=== PATIENT | female | born 1945 | race Caucasian/White ===

== ENCOUNTER 2025-06-27 21:43 | Inpatient (IN) ==
--- NOTE | 2025-06-27 22:36 | Emergency Department Note ---
Impression & Plan Fall, Right shoulder pain, Acute pain of left hip, Intractable pain ED Provider Note CHIEF COMPLAINT: Fall HISTORY OF PRESENTING ILLNESS: The patient is a pleasant, 80-year-old female who arrives to the emergency department for evaluation of injuries sustained from a mechanical fall. Patient reports she tripped over her own feet, when she was attempting to turn in the kitchen. Patient does have right shoulder arthroplasty. She reports she landed onto her right shoulder. She states she did not have head strike. She also reports she is having left hip pain. She denies numbness or tingling of the right upper or left lower extremity. She states she is able to ambulate, however painful in the left hip. She reports she takes a daily baby aspirin. She is well-appearing otherwise, neurovascular status intact. REVIEW OF SYSTEMS: See HPI for pertinent positives and pertinent negatives. ALLERGIES: See below MEDICATIONS: See below PAST MEDICAL HISTORY: See below PHYSICAL EXAM: VITALS: Vitals are noted on the nurse's note and reviewed by myself. Vital signs stable. GENERAL: 80-year-old female, in no acute distress, nondiaphoretic, well- developed well-nourished. SKIN: The skin was without rashes, erythema, edema, or bruising. HEAD: Normocephalic atraumatic. EARS: External auditory canals clear, tympanic membranes pearly scott without erythema or effusion bilaterally. No hemotympanum. EYES: Pupils equal round and reactive to light and accommodation. Conjunctivae without injection, sclerae without icterus. Extraocular movements intact. NOSE: Patent, turbinates without inflammation or discharge. No sinus tenderness. No nystagmus. NECK: Supple without nuchal rigidity. Cervical spine is nontender. HEART: Regular rate and rhythm without murmurs gallops or rubs. LUNGS: Clear to auscultation bilaterally without wheezes, rales or rhonchi. No retractions or accessory muscle use. ABDOMEN: Positive bowel sounds x 4. Soft, nontender, without masses or organomegaly. Dow sign negative. No guarding or rebound tenderness. MUSCULOSKELETAL: Tenderness to palpation left hip over the greater trochanter. Pelvis stable to rock. Tenderness to palpation anterior posterior shoulder, limited ROM shoulder, secondary to pain. Full ROM, right elbow, right wrist. Filter Tip Catcher strength 5/5. Radial pulse intact. NEURO: Patient was alert and oriented to person place and time. No focal neurological deficits. DIFFERENTIAL DIAGNOSIS: Fracture, subluxation, dislocation, contusion, ligamentous injury, neurovascular, compartment syndrome, as well as other pathologies. ED COURSE AND MEDICAL DECISION MAKING: MEDICATIONS GIVEN: Fentanyl 50 mcg IV, Dilaudid 0.5 mg IV. INTERPRETATION OF LABS: I interpreted the labs with full lab results as below in the lab section of this note. Pertinent lab results discussed in the MDM section below. INTERPRETATION OF IMAGING: Imaging studies were interpreted by myself and read by radiology as per the imaging section of this note. MDM SUMMARY: The patient is a pleasant, 80-year-old female who arrives to the emergency department for evaluation of the above-stated complaint. Saline lock was established, lab work was obtained. CBC shows no leukocytosis, no anemia. CMP shows slight elevation in creatinine, however otherwise unremarkable. Urinalysis negative for concerning signs of infection. X-ray imaging of the shoulder was obtained which per my interpretation shows no acute findings, arthroplasty appears to have no evidence of hardware complication or fracture. There is noted dislocation noted. Hip and pelvis x-ray imaging was obtained which per my interpretation shows no acute bony abnormality. Patient was provided IV fentanyl, and IV Dilaudid for pain control, with continued significant pain. I do believe CT imaging of the shoulder is indicated, as the patient's pain is out of proportion for the radiology reads. CT imaging was performed, with no acute traumatic injury noted. Patient will be admitted to the hospital for intractable pain, and further evaluation. The patient was admitted to the [facility] hospitalist group. Please refer to their documentation for further patient workup and care. DIAGNOSIS: Fall, right shoulder pain, left hip pain, intractable pain The patient's case was discussed with Dr. Sousa, who agreed with my evaluation and treatment plan. The chart was completed utilizing [employer] Speech voice recognition software. Grammatical errors, random word insertions, pronoun errors, and incomplete sentences are an occasional consequence of this system due to software limitations, ambient noise, and hardware issues. Any formal questions or concerns about the content, text, or information contained within the body of this dictation should be directly addressed to the provider for clarification. Past Med/Surg History Problem List (Updated 07/03/25 @ 19:03 by RIKKI Drummond) Intractable pain (Acute) Acute pain of left hip (Acute) History of shoulder replacement Renal insufficiency Fall (Acute) Right shoulder pain (Acute) Impacted cerumen, left ear Dizziness and giddiness Sensorineural hearing loss (SNHL), bilateral Medical History Trigeminal neuralgia Acid reflux Diabetes High blood pressure Surgical History H/O carpal tunnel repair History of bladder surgery H/O: hysterectomy Family History Other Cancer Heart disease Hypertension Stroke Social History Smoking Status: Former smoker Tobacco Type: Cigarettes Second Hand Exposure: No; Do You Dip or Chew Tobacco: No; Hx Alcohol Use: No Hx Substance Use: No Preferred Language: Polish Communication Ability: Effective Core Oven Tender Required: No Beliefs That Will Affect Care: None marital status: Current Living Situation: Alone current occupational status: retired Feels Safe at Home: Yes Gender Identity: Female Assistive Devices: CPAP and Walker Allergies Allergies Allergy/AdvReac Type Severity Reaction Status Date / Time cephalexin [From Keflex] Allergy Unverified 05/30/25 10:23 morphine Allergy Unverified 05/30/25 10:23 Sulfa (Sulfonamide Allergy Unverified 05/30/25 10:23 Antibiotics) Home Meds Home Medications Medication Instructions Recorded Confirmed amlodipine 5 mg tablet 5 mg PO DAILY 05/30/25 06/28/25 [id number] 250 1 tab PO Q6H PRN Migraine Headache 05/30/25 06/28/25 mg-250 mg-65 mg tablet (Excedrin Extra Strength) atorvastatin 10 mg tablet 10 mg PO DAILY 05/30/25 06/28/25 cholecalciferol (vitamin D3) 125 125 mcg PO DAILY 05/30/25 06/28/25 mcg (5,000 unit) capsule cyanocobalamin (vitamin B-12) 500 500 mcg PO DAILY 05/30/25 06/28/25 mcg tablet escitalopram oxalate 10 mg tablet 10 mg PO DAILY 05/30/25 06/28/25 ferrous sulfate 325 mg (65 mg 325 mg PO USEASDIRECTD 05/30/25 06/28/25 iron) tablet gabapentin 600 mg tablet 600 mg PO BID 05/30/25 06/28/25 ketorolac 0.5 % eye drops 1 drp ophthalmic (eye) QID 05/30/25 06/28/25 lorazepam 0.5 mg tablet 0.5 mg PO HS 05/30/25 06/28/25 oxcarbazepine 150 mg tablet 150 mg PO BID 05/30/25 06/28/25 pantoprazole 40 mg tablet,delayed 40 mg PO DAILY 05/30/25 06/28/25 release pioglitazone 15 mg tablet 15 mg PO DAILY 05/30/25 06/28/25 rizatriptan 10 mg tablet See Rx Instructions PO .COMPLEX 05/30/25 06/28/25 telmisartan 80 mg tablet 80 mg PO DAILY 05/30/25 06/28/25 trazodone 100 mg tablet 150 mg PO HS 05/30/25 06/28/25 verapamil 180 mg 24 hr 180 mg PO BID 05/30/25 06/28/25 capsule,extended release Previous Rx's Medication Instructions Recorded acetaminophen 500 mg tablet 1,000 mg (2 x 500 mg) PO Q8H #0 07/02/25 (Tylenol Extra Strength) tabs oxycodone 5 mg tablet 5 mg PO Q4H PRN pain #12 tabs 07/02/25 Results & Data (ED) Vital Signs Vital Signs - 24 hr 06/27/25 21:45 Temperature 36.5 C Temperature Source Temporal Artery Scan Pulse Rate 99 H Pulse Rhythm Regular Pulse Strength Normal Respiratory Rate 18 Respiratory Effort / Characteristics Non-Labored Spontaneous Respiratory Depth Normal Respiratory Pattern Regular Blood Pressure 188/106 H Blood Pressure Mean 133 Pulse Oximetry 91 Oxygen Delivery Method Room Air Sepsis Recent Fever Within 48 Hours No Sepsis New/Unexplained Change in Mental Status No Sepsis Action Taken by Nursing No Action Required Laboratory Data 06/27/25 22:57 07/02/25 06:10 Lab Results 06/27/25 Range/Units 22:57 WBC 8.56 (4.8-10.8) K/ul RBC 3.95 L (4.20-5.40) M/uL Hgb 12.5 (12.0-16.0) g/dl Hct 37.9 (37.0-47.0) % MCV 95.9 (80.0-100.0) fL MCH 31.6 (25.0-34.0) pg MCHC 33.0 (32.0-36.0) g/dL RDW Std Deviation 52.2 H (36.4-46.3) fL RDW Coeff of Analy 14.8 H (11.5-14.5) % Plt Count 236 (130-400) K/uL MPV 10.7 (9.4-12.4) fL Immature Gran % (Auto) 0.2 % Neut % (Auto) 68.3 % Lymph % (Auto) 21.5 % Churchill % (Auto) 8.4 % Eos % (Auto) 0.7 % Baso % (Auto) 0.9 % Neut # (Auto) 5.84 (1.40-6.50) K/uL Lymph # (Auto) 1.84 (1.20-3.40) K/uL Churchill # (Auto) 0.72 H (0.11-0.59) K/uL Eos # (Auto) 0.06 (0.00-0.50) K/uL Baso # (Auto) 0.08 (0.00-0.20) K/uL Immature Gran # (Auto) 0.02 (0.01-0.20) K/uL Sodium 140 (136-145) mmol/L Potassium 4.1 (3.5-5.1) mmol/L Chloride 105 (98-107) mmol/L Carbon Dioxide 26 (21-32) mmol/L Anion Gap 9 (3-11) BUN 15 (6-23) mg/dl Creatinine 1.42 H (0.6-1.2) mg/dl Est Cr Clr Drug Dosing 29.4 ml/min eGFR 37.62 BUN/Creatinine Ratio 10.6 (10-20) Glucose 122 H (70-99(Fasting)) mg/dl Calcium 9.6 (8.6-10.3) mg/dl Total Bilirubin 0.3 (0.2-1.0) mg/dl AST 16 (13-39) U/L ALT 7 (7-52) U/L Alkaline Phosphatase 89 (34-104) U/L Total Protein 6.7 (6.0-8.3) gm/dl Albumin 3.8 (3.4-5.0) gm/dl Globulin 2.9 (2.5-4.0) gm/dl Albumin/Globulin Ratio 1.3 (0.9-2) Administered Medications Discontinued Medications Acetaminophen (Acetaminophen 500 Mg Tab) 1,000 mg PO Q8H BAL Stop: 07/28/25 08:29 Last Admin: 07/02/25 08:04 Dose: 1,000 mg Documented By: Admin: 07/02/25 01:01 Dose: 1,000 mg Documented By: Admin: 07/01/25 17:59 Dose: 1,000 mg Documented By: Admin: 07/01/25 07:53 Dose: 1,000 mg Documented By: Admin: 07/01/25 00:58 Dose: Not Given Documented By: Admin: 06/30/25 16:49 Dose: 1,000 mg Documented By: Admin: 06/30/25 08:15 Dose: 1,000 mg Documented By: Admin: 06/30/25 01:47 Dose: Not Given Documented By: mauricio Admin: 06/29/25 18:01 Dose: 1,000 mg Documented By: Admin: 06/29/25 08:57 Dose: 1,000 mg Documented By: Admin: 06/29/25 02:00 Dose: Not Given Documented By: mauricio Admin: 06/28/25 16:07 Dose: 1,000 mg Documented By: Admin: 06/28/25 09:21 Dose: Not Given Documented By: MIKAEL Amlodipine Besylate (Amlodipine Besylate 5 Mg Tab) 5 mg PO DAILY BAL Stop: 07/28/25 08:59 Last Admin: 07/02/25 07:52 Dose: 5 mg Documented By: Admin: 07/01/25 07:50 Dose: 5 mg Documented By: Admin: 06/30/25 08:17 Dose: 5 mg Documented By: Admin: 06/29/25 08:55 Dose: 5 mg Documented By: Admin: 06/28/25 08:50 Dose: 5 mg Documented By: MIKAEL Atorvastatin Calcium (Atorvastatin 10 Mg Tab) 10 mg PO DAILY BAL Stop: 07/28/25 08:59 Last Admin: 07/02/25 07:52 Dose: 10 mg Documented By: Admin: 07/01/25 07:50 Dose: 10 mg Documented By: Admin: 06/30/25 08:17 Dose: 10 mg Documented By: Admin: 06/29/25 08:55 Dose: 10 mg Documented By: Admin: 06/28/25 08:50 Dose: 10 mg Documented By: MIKAEL Cyclobenzaprine HCl (Cyclobenzaprine Hcl 5 Mg Tab) 5 mg PO TID BAL Stop: 07/28/25 20:59 Last Admin: 06/29/25 12:59 Dose: 5 mg Documented By: Admin: 06/29/25 08:55 Dose: 5 mg Documented By: Admin: 06/28/25 20:26 Dose: 5 mg Documented By: mauricio Enoxaparin Sodium (Enoxaparin Inj 40 Mg/0.4 Ml Syr) 40 mg SQ QAM BAL Stop: 07/28/25 15:29 Last Admin: 07/02/25 07:52 Dose: 40 mg Documented By: Admin: 07/01/25 07:51 Dose: 40 mg Documented By: Admin: 06/30/25 08:15 Dose: 40 mg Documented By: Admin: 06/29/25 08:56 Dose: 40 mg Documented By: Admin: 06/28/25 17:44 Dose: 40 mg Documented By: MIKAEL Escitalopram Oxalate (Escitalopram Oxalate 10 Mg Tab) 10 mg PO DAILY BAL Stop: 07/28/25 08:59 Last Admin: 07/02/25 07:52 Dose: 10 mg Documented By: Admin: 07/01/25 07:50 Dose: 10 mg Documented By: Admin: 06/30/25 08:16 Dose: 10 mg Documented By: Admin: 06/29/25 08:55 Dose: 10 mg Documented By: Admin: 06/28/25 08:50 Dose: 10 mg Documented By: MIKAEL Fentanyl Citrate (Fentanyl Citrate Pf 100 Mcg/2 Ml Vial) 50 mcg IV NOW STA Stop: 06/27/25 22:50 Last Admin: 06/27/25 22:55 Dose: 50 mcg Documented By: LUIS ARMANDO Ferrous Sulfate (Ferrous Sulfate 325 Mg Tab) 325 mg PO Q2D BAL Stop: 07/28/25 08:59 Last Admin: 07/02/25 07:52 Dose: 325 mg Documented By: Admin: 06/30/25 08:17 Dose: 325 mg Documented By: Admin: 06/28/25 08:50 Dose: 325 mg Documented By: MIKAEL Furosemide (Furosemide 40 Mg/4 Ml Vial) 40 mg IV ONE ONE Stop: 06/29/25 13:37 Last Admin: 06/29/25 14:29 Dose: 40 mg Documented By: BENITO Furosemide (Furosemide 40 Mg/4 Ml Vial) 40 mg IV ONE ONE Stop: 07/01/25 09:11 Last Admin: 07/01/25 11:11 Dose: 40 mg Documented By: GOOD Gabapentin (Gabapentin 600 Mg Tab) 600 mg PO BID BAL Stop: 07/28/25 08:59 Last Admin: 07/02/25 09:14 Dose: 600 mg Documented By: Admin: 07/01/25 20:08 Dose: 600 mg Documented By: Admin: 07/01/25 07:49 Dose: 600 mg Documented By: Admin: 06/30/25 20:33 Dose: 600 mg Documented By: Admin: 06/30/25 08:17 Dose: 600 mg Documented By: Admin: 06/29/25 20:09 Dose: 600 mg Documented By: mauricio Admin: 06/29/25 08:54 Dose: 600 mg Documented By: Admin: 06/28/25 20:27 Dose: 600 mg Documented By: mauricio Admin: 06/28/25 08:50 Dose: 600 mg Documented By: MIKAEL Hydromorphone HCl (Hydromorphone Inj 0.5 Mg/0.5 Ml Syr) 0.5 mg IV NOW STA Stop: 06/28/25 00:45 Last Admin: 06/28/25 00:47 Dose: 0.5 mg Documented By: LUIS ARMANDO Hydromorphone HCl (Hydromorphone Inj 0.5 Mg/0.5 Ml Syr) 0.5 mg IV Q3H PRN PRN Reason: Pain (6,7,8,9,10) Stop: 07/12/25 01:49 Last Admin: 06/28/25 11:39 Dose: 0.5 mg Documented By: Admin: 06/28/25 03:35 Dose: 0.5 mg Documented By: JV Lactated Ringer's (Lr) 1,000 mls @ 80 mls/hr IV .[id number] STA Stop: 06/28/25 14:38 Last Infusion: 06/29/25 07:14 Dose: Infused Documented By: Admin: 06/28/25 02:15 Dose: 80 mls/hr Documented By: REHANA Influenza Virus Vacc Triv Types A&B (Influenza Vacc Ly5738-35(65y+)/Pf (Iiv3) 0.5ml Syr) 0.5 ml IM .ONCE ONE Stop: 06/28/25 11:25 Last Admin: 07/01/25 13:36 Dose: Not Given Documented By: GOOD Ketorolac Tromethamine (Ketorolac 0.5% Op Soln 5 Ml Btl) 1 drops OP QID BAL Stop: 07/28/25 08:59 Last Admin: 07/02/25 12:49 Dose: 1 drops Documented By: Admin: 07/02/25 07:53 Dose: 1 drops Documented By: Admin: 07/01/25 20:08 Dose: 1 drops Documented By: Admin: 07/01/25 17:59 Dose: 1 drops Documented By: Admin: 07/01/25 13:19 Dose: 1 drops Documented By: Admin: 07/01/25 07:51 Dose: 1 drops Documented By: Admin: 06/30/25 20:32 Dose: 1 drops Documented By: Admin: 06/30/25 16:50 Dose: 1 drops Documented By: [facility] Admin: 06/30/25 12:56 Dose: 1 drops Documented By: [facility] Admin: 06/30/25 08:18 Dose: 1 drops Documented By: Admin: 06/29/25 20:09 Dose: 1 drops Documented By: mauricio Admin: 06/29/25 18:01 Dose: 1 drops Documented By: Admin: 06/29/25 12:55 Dose: 1 drops Documented By: Admin: 06/29/25 08:55 Dose: 1 drops Documented By: Admin: 06/28/25 20:27 Dose: 1 drops Documented By: mauricio Admin: 06/28/25 17:27 Dose: 1 drops Documented By: Admin: 06/28/25 13:28 Dose: 1 drops Documented By: Admin: 06/28/25 08:50 Dose: 1 drops Documented By: BT Lidocaine (Lidocaine 5% 1 Patch) 1 patch TD NOW STA Stop: 06/28/25 01:51 Last Admin: 06/28/25 02:15 Dose: 1 patch Documented By: REHANA Lorazepam (Lorazepam 0.5 Mg Tab) 0.5 mg PO HS BAL Stop: 07/28/25 20:59 Last Admin: 07/01/25 20:07 Dose: 0.5 mg Documented By: Admin: 06/30/25 20:32 Dose: 0.5 mg Documented By: Admin: 06/29/25 20:13 Dose: 0.5 mg Documented By: mauricio Admin: 06/28/25 20:26 Dose: 0.5 mg Documented By: mauricio Losartan Potassium (Losartan Potassium 50 Mg Tab) 100 mg PO DAILY BAL Stop: 07/28/25 08:59 Last Admin: 07/02/25 07:52 Dose: 100 mg Documented By: Admin: 07/01/25 07:49 Dose: 100 mg Documented By: Admin: 06/30/25 08:16 Dose: 100 mg Documented By: Admin: 06/29/25 08:55 Dose: 100 mg Documented By: Admin: 06/28/25 08:50 Dose: 100 mg Documented By: MIKAEL Miscellaneous (Remove Lidoderm Patch) 1 each N/A ONE ONE Stop: 06/28/25 14:01 Last Admin: 06/28/25 13:31 Dose: 1 each Documented By: MIKAEL Ondansetron HCl (Ondansetron Inj 2 Mg/Ml 2 Ml Vial) 4 mg IV Q4H PRN PRN Reason: Nausea Stop: 07/28/25 01:49 Last Admin: 06/28/25 09:25 Dose: 4 mg Documented By: MIKAEL Oxcarbazepine (Oxcarbazepine 150 Mg Tablet) 150 mg PO BID BAL Stop: 07/28/25 08:59 Last Admin: 07/02/25 07:51 Dose: 150 mg Documented By: Admin: 07/01/25 20:08 Dose: 150 mg Documented By: Admin: 07/01/25 07:50 Dose: 150 mg Documented By: Admin: 06/30/25 20:33 Dose: 150 mg Documented By: Admin: 06/30/25 08:16 Dose: 150 mg Documented By: Admin: 06/29/25 20:10 Dose: 150 mg Documented By: mauricio Admin: 06/29/25 08:55 Dose: 150 mg Documented By: Admin: 06/28/25 20:26 Dose: 150 mg Documented By: mauricio Admin: 06/28/25 08:50 Dose: 150 mg Documented By: MIKAEL Oxycodone HCl (Oxycodone Hcl Ir 5 Mg Tab (Immediate Release)) 5 mg PO Q4H PRN PRN Reason: Moderate Pain (Scale 4, 5, 6) Stop: 07/12/25 15:14 Last Admin: 07/02/25 08:24 Dose: 5 mg Documented By: Admin: 07/01/25 20:07 Dose: 5 mg Documented By: Admin: 07/01/25 13:23 Dose: 5 mg Documented By: Admin: 06/30/25 20:31 Dose: 5 mg Documented By: Admin: 06/30/25 06:32 Dose: 5 mg Documented By: mauricio Admin: 06/28/25 19:18 Dose: 5 mg Documented By: mauricio Pantoprazole Sodium (Pantoprazole 40 Mg Tab) 40 mg PO DAILY BAL Stop: 07/28/25 08:59 Last Admin: 07/02/25 09:15 Dose: 40 mg Documented By: Admin: 07/01/25 07:50 Dose: 40 mg Documented By: Admin: 06/30/25 08:17 Dose: 40 mg Documented By: Admin: 06/29/25 08:54 Dose: 40 mg Documented By: Admin: 06/28/25 08:50 Dose: 40 mg Documented By: MIKAEL Polyethylene Glycol (Polyethylene (Miralax) 17 Gm Pack) 17 gm PO DAILY PRN PRN Reason: Constipation Stop: 07/28/25 03:28 Last Admin: 07/01/25 07:46 Dose: 17 gm Documented By: GOOD Potassium Chloride (Potassium Chloride Crtab 20 Meq Tabcr) 40 meq PO NOW ONE Stop: 06/29/25 13:37 Last Admin: 06/29/25 14:29 Dose: 40 meq Documented By: BENITO Potassium Chloride (Potassium Chloride Crtab 20 Meq Tabcr) 40 meq PO NOW ONE Stop: 07/01/25 09:12 Last Admin: 07/01/25 11:11 Dose: 40 meq Documented By: GOOD Tramadol HCl (Tramadol Hcl 50 Mg Tablet) 50 mg PO Q4H PRN PRN Reason: Mild-Mod Pain (Scale 1-6) Stop: 07/28/25 08:16 Last Admin: 06/28/25 13:40 Dose: 50 mg Documented By: Admin: 06/28/25 09:40 Dose: 50 mg Documented By: BT Trazodone HCl (Trazodone Hcl 50 Mg Tab) 150 mg PO HS BAL Stop: 07/28/25 20:59 Last Admin: 07/01/25 20:09 Dose: 150 mg Documented By: Admin: 06/30/25 20:33 Dose: 150 mg Documented By: Admin: 06/29/25 20:10 Dose: 150 mg Documented By: mauricio Admin: 06/28/25 20:27 Dose: 150 mg Documented By: mauricio Verapamil HCl (Verapamil Hcl 180 Mg Tabcr) 180 mg PO BID BAL Stop: 07/28/25 08:59 Last Admin: 07/02/25 07:52 Dose: 180 mg Documented By: Admin: 07/01/25 20:14 Dose: 180 mg Documented By: Admin: 07/01/25 07:51 Dose: 180 mg Documented By: Admin: 06/30/25 20:32 Dose: 180 mg Documented By: Admin: 06/30/25 08:16 Dose: 180 mg Documented By: AAKylie Admin: 06/29/25 20:13 Dose: 180 mg Documented By: mauricio Admin: 06/29/25 08:56 Dose: 180 mg Documented By: Admin: 06/28/25 20:26 Dose: 180 mg Documented By: mauricio Admin: 06/28/25 08:50 Dose: 180 mg Documented By: MIKAEL Discharge Plan Visit Data Chief Complaint: Fall Stated Complaint: FELL ON RT SHOULDER, ON ASPIRIN ED Provider: Kelly Sousa ED Midlevel Provider: Charissa Sánchez Discharge Problem: Fall, Right shoulder pain, Acute pain of left hip, Intractable pain Patient Disposition: Admitted As Inpatient Condition: Fair Discharge Instructions Interventions: ED Discharge Assessment Last Done: 06/28/25 03:04
[2025-06-27 23:17] LABS: Hematocrit (blood only) 37.9 % (37.0-47.0); Hemoglobin 12.5 g/dl (12.0-16.0); Immature Granulocytes # (auto) 0.02 K/uL (0.01-0.20); Immature Granulocytes % (auto) 0.2 %; Mean Corpuscular Hemoglobin 31.6 pg (25.0-34.0); Mean Corpuscular Volume 95.9 fL (80.0-100.0); Platelet Count 236 K/uL (130-400); RDW Standard Deviation 52.2 fL (36.4-46.3); Red Blood Count 3.95 M/uL (4.20-5.40); White Blood Count 8.56 K/ul (4.8-10.8)
[2025-06-27 23:34] LABS: Alanine Aminotransferase 7.0 U/L (7-52); Albumin Globulin Ratio 1.3 (0.9-2); Albumin Level 3.8 gm/dl (3.4-5.0); Alkaline Phosphatase 89.0 U/L (34-104); Anion Gap 9.0 (3-11); Bilirubin,Total 0.3 mg/dl (0.2-1.0); Blood Urea Nitrogen 15.0 mg/dl (6-23); Calcium 9.6 mg/dl (8.6-10.3); Carbon Dioxide 26.0 mmol/L (21-32); Chloride 105.0 mmol/L (98-107); Creatinine Clr Calc Pharmacy 29.4 ml/min; Globulin 2.9 gm/dl (2.5-4.0); Glucose 122.0 mg/dl (70-99(Fasting)); Potassium 4.1 mmol/L (3.5-5.1); Sodium 140.0 mmol/L (136-145); Total Protein 6.7 gm/dl (6.0-8.3)
--- NOTE | 2025-06-27 23:45 | Emergency Department Note ---
ED Visit Note I was consulted by the Advanced Practice Provider, RIKKI Soliz. I performed a substantive portion of the visit. This includes aspects of: History: Patient is a 80-year-old female presenting with right shoulder pain after a fall. Patient reports she tripped and fell earlier this evening and landed on her right shoulder. She is on a baby aspirin daily. Denies striking her head or loss of consciousness. MDM: Laboratory workup in the emergency department was grossly unremarkable. X- ray imaging of the shoulder and pelvis were negative for acute fracture. However, patient is having continued pain despite multiple IV narcotic pain medication administrations. CT shoulder was ordered. Patient will be admitted for intractable pain. .
--- NOTE | 2025-06-28 00:31 | XRay Report ---
Exam(s): XR SHOULDER, 2+ views EXAM: XR Right Shoulder Complete, 2 or More Views CLINICAL HISTORY: Reason for exam: Shoulder trauma, no prior imaging. TECHNIQUE: Two or more views of the right shoulder. COMPARISON: No relevant prior studies available. FINDINGS: Bones/joints: Reverse shoulder arthroplasty without evidence of hardware complication. No acute fracture. No dislocation. Partial clavicle resection. Soft tissues: Unremarkable. IMPRESSION: No acute findings in the right shoulder. Electronically signed by: Duke Castellanos M.D. 06/28/25 00:30 AM
--- NOTE | 2025-06-28 00:38 | XRay Report ---
Exam(s): XR HIP + PELVIS, 1 view EXAM: XR Left Hip With Pelvis When Performed, 2 or 3 Views CLINICAL HISTORY: Reason for exam: ttp iliac crest. TECHNIQUE: Two or three views of the left hip with pelvis when performed. COMPARISON: No relevant prior studies available. FINDINGS: Bones/joints: No acute fracture. No dislocation. Soft tissues: Unremarkable. IMPRESSION: No acute osseous findings. Electronically signed by: Duke Castellanos M.D. 06/28/25 00:37 AM
[2025-06-28] MEDS: HYDROmorphone INJ 0.5 MG/0.5 ML SYR IV STA (00:47)
--- NOTE | 2025-06-28 01:21 | History & Physical Report ---
Date of Service June 28, 2025 Assessment & Plan (1) Right shoulder pain: (2) Fall: (3) Renal insufficiency: Plan 80-year-old female PMHx T2DM, migraines, HLD, HTN, anxiety with depression, vitamin B12 deficiency, and vestibular nystagmus presenting after fall at home, landing on the right shoulder. Her workup is overall unremarkable with exception of creatinine of 1.42 and glucose 122. Her imaging thus far shows no acute fracture or abnormalities, pending CT of her R shoulder. Admission for further pain control with inability to move the right upper extremity, as well as CASS. #R shoulder pain/Fall Patient presenting from home after fall onto right shoulder, now with inability to move R shoulder. With prior R shoulder replacement and history of clavicular fracture. Is on aspirin at baseline, no additional blood thinning agents. - CBC gross unremarkable; CMP with creatinine 1.42, glucose 122 - R shoulder XR without acute finding - Hip/pelvis XR without acute findings - Pending R shoulder CT - NPO - pending CT read - IVF LR @ 80 mL/hr x 1L - Zofran prn N/V - Acetaminophen prn fever/pain, Dilaudid prn moderate-severe pain - Lidocaine patch as tolerated - Ortho consulted - appreciate input + recs - Pt will need PT/OT once cleared by ortho #Renal insufficiency No prior h/o CKD. - Cr 1.42, BUN 15 - BMP am - UA pending - Bladder scan prn - Hold nephrotoxic agents, renally adjust medications as appropriate - IVF LR @ 80 mL/hr x 1L #T2DM H/o DMT2; At home regimen includes pioglitazone, and gabapentin + oxcarbazepine for neuropathy. - Glucose on admission 122; Pending A1c - Hold pioglitazone - SSI deferred, add on as appropriate - BSG daily - Adjust regimen as needed #HTN- Amlodipine, telmisartan, verapamil - continue #Migraines- Excedrin prn, rizatriptan prn - continue rizatriptan, hold Excedrin (continue to hold while on acetaminophen for pain management) #HLD- Atorvastatin - continue #Psych- Escitalopram, trazodone, lorazepam - continue #GERD- Pantoprazole - continue Dispo: Admit, med/sx VTE Prophylaxis: SCDs This document was dictated utilizing [employer]. Please excuse any grammatical errors that may be secondary to use of this software. Admission and Anticipated Discharge Date Admission Date: 06/28/2025 History of Present Illness Chief Complaint: Fall Primary Care Provider: Yuli Coronado 80-year-old female PMHx T2DM, migraines, HLD, HTN, anxiety with depression, vitamin B12 deficiency, and vestibular nystagmus presenting after fall at home, landing on the right shoulder. Did not hit head, but is on baby aspirin daily. Pt reports that she fell forward while at home, landing directly on her R shoulder. She did not have time to reach out and catch herself before hitting the ground. Again, she did not hit her head or any additional areas of her body. Pt denies any symptoms prior to the fall including chest pain, dizziness, syncope, or palpitations. She reports falls in the past, all mechanical in nature. 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 She admits to significant, sharp pain at time of visit. Unable to get comfortable in bed. She is able to pinpoint the pain to the upper, lateral aspect of her RUE. When lifting her shoulder in an upward motion, she has a significant increase in her pain. When leaning her shoulder forward, there is not a significant change in her pain. She denies any numbness/tingling throughout, specifically in the RUE. She is able to move her RUE from the elbow to fingers without pain/discomfort. She is tearful, expressing much pain that has not been alleviated with pain medications. She denies additional symptoms to include chest pain, palpitations, SOB, abdominal pain, N/V/D/C, numbness/tingling, URI symptoms, F/C, LUTS, weakness, syncope, or LOC. Pt's son, Archie, is present in room at time of visit. ED evaluation reveals CBC without leukocytosis, stable H&H; CMP creatinine 1.42, glucose 122; shoulder XR no acute findings; hip/pelvis XR no acute findings; pending CT R shoulder.; Provided with hydromorphone 0.5 mg IV and fentanyl 50 mcg IV in ED. Please see Dr. Torres's attestation for adjustments/additions to treatment plan. Allergies Allergy/AdvReac Type Severity Reaction Status Date / Time cephalexin [From Keflex] Allergy Unverified 05/30/25 10:23 morphine Allergy Unverified 05/30/25 10:23 Sulfa (Sulfonamide Allergy Unverified 05/30/25 10:23 Antibiotics) Home Medications Medication Instructions Recorded Confirmed Type amlodipine 5 mg tablet 5 mg PO DAILY 05/30/25 06/28/25 History rvofqij-ckmoxqxrqcnue-tlfbcbit 250 1 tab PO Q6H PRN Migraine Headache 05/30/25 06/28/25 History mg-250 mg-65 mg tablet (Excedrin Extra Strength) atorvastatin 10 mg tablet 10 mg PO DAILY 05/30/25 06/28/25 History cholecalciferol (vitamin D3) 125 125 mcg PO DAILY 05/30/25 06/28/25 History mcg (5,000 unit) capsule cyanocobalamin (vitamin B-12) 500 500 mcg PO DAILY 05/30/25 06/28/25 History mcg tablet escitalopram oxalate 10 mg tablet 10 mg PO DAILY 05/30/25 06/28/25 History ferrous sulfate 325 mg (65 mg 325 mg PO USEASDIRECTD 05/30/25 06/28/25 History iron) tablet gabapentin 600 mg tablet 600 mg PO BID 05/30/25 06/28/25 History ketorolac 0.5 % eye drops 1 drp ophthalmic (eye) QID 05/30/25 06/28/25 History lorazepam 0.5 mg tablet 0.5 mg PO HS 05/30/25 06/28/25 History oxcarbazepine 150 mg tablet 150 mg PO BID 05/30/25 06/28/25 History pantoprazole 40 mg tablet,delayed 40 mg PO DAILY 05/30/25 06/28/25 History release pioglitazone 15 mg tablet 15 mg PO DAILY 05/30/25 06/28/25 History rizatriptan 10 mg tablet See Rx Instructions PO .COMPLEX 05/30/25 06/28/25 History telmisartan 80 mg tablet 80 mg PO DAILY 05/30/25 06/28/25 History trazodone 100 mg tablet 150 mg PO DAILY 05/30/25 06/28/25 History verapamil 180 mg 24 hr 180 mg PO BID 05/30/25 06/28/25 History capsule,extended release Past Med/Surg History Problem List (Updated 06/28/25 @ 02:12 by Shabbir Velasco PA-C) Renal insufficiency Fall Right shoulder pain Impacted cerumen, left ear Dizziness and giddiness Sensorineural hearing loss (SNHL), bilateral Medical History Trigeminal neuralgia Acid reflux Diabetes High blood pressure Surgical History H/O carpal tunnel repair History of bladder surgery H/O: hysterectomy Family History Other Cancer Heart disease Hypertension Stroke Social History Smoking Status: Former smoker Tobacco Type: Cigarettes Second Hand Exposure: No; Do You Dip or Chew Tobacco: No; Hx Alcohol Use: No Hx Substance Use: No Preferred Language: Italian marital status: Current Living Situation: Alone current occupational status: retired Feels Safe at Home: Yes Gender Identity: Female Assistive Devices: Glasses Review of Systems Review of Systems: All systems reviewed & are unremarkable except as noted in Subjective Physical Exam Physical Exam: General: No acute distress, well developed. Skin: Warm and dry, without rashes or lesions. No cyanosis or clubbing Head: Normocephalic, atraumatic Eyes: PERRL, conjunctivae clear, sclera non-icteric; EOM intact; wearing glasses ENT: External ear and ear canal without swelling; nose atraumatic; good denti tion, tongue normal appearance, pharynx normal without tonsillar swelling or exudate Neck: Supple, no LAD; no JVD Cardio: RRR, no M/G/R, S1 and S2 normal Resp: Chest wall symmetric, normal respiratory effort; No respiratory distress, Lungs CTA in all lobes bilaterally, no wheezes, rales, or rhonchi Abdomen: Soft, symmetric, nontender; No visible lesions or scars; no distention; No masses or hepatosplenomegaly; Bowel sounds normoactive MSK: RUE appears slightly lower than LUE, palpable step off at R clavicle, very limited ROM RUE 2/2 pain, pulses palpable, neurologically intact; No deformit ies, full ROM throughout LUE/BLE; pulses palpable and equal; no edema. Neuro: Awake, alert; Muscle strength 5/5 bilaterally in LE, 5/5 LUE, unable to test RUE; Sensation intact bilaterally; CN intact Psych: Tearful; good judgement and insight. SonArchie, present in room at time of visit. Results & Data Results & Data Vital Signs (Past 12 Hours) Vital Signs Temp Pulse Pulse Resp BP BP Pulse Ox 06/28/25 00:47 78 16 163/100 H 92 06/27/25 22:55 85 16 170/89 H 93 06/27/25 21:45 36.5 C 99 H 18 188/106 H 91 O2 Del Method 06/28/25 00:47 Room Air 06/27/25 22:55 Room Air 06/27/25 21:45 Room Air Laboratory Results 06/27/25 22:57 WBC 8.56 RBC 3.95 L Hgb 12.5 Hct 37.9 MCV 95.9 MCH 31.6 MCHC 33.0 RDW Std Deviation 52.2 H RDW Coeff of Analy 14.8 H Plt Count 236 MPV 10.7 Immature Gran % (Auto) 0.2 Neut % (Auto) 68.3 Lymph % (Auto) 21.5 Patrick % (Auto) 8.4 Eos % (Auto) 0.7 Baso % (Auto) 0.9 Neut # (Auto) 5.84 Lymph # (Auto) 1.84 Patrick # (Auto) 0.72 H Eos # (Auto) 0.06 Baso # (Auto) 0.08 Immature Gran # (Auto) 0.02 Sodium 140 Potassium 4.1 Chloride 105 Carbon Dioxide 26 Anion Gap 9 BUN 15 Creatinine 1.42 H Est Cr Clr Drug Dosing 29.4 eGFR 37.62 BUN/Creatinine Ratio 10.6 Glucose 122 H Calcium 9.6 Total Bilirubin 0.3 AST 16 ALT 7 Alkaline Phosphatase 89 Total Protein 6.7 Albumin 3.8 Globulin 2.9 Albumin/Globulin Ratio 1.3 Diagnostic Findings Shoulder X-Ray 06/27/25 21:49 Exam(s): XR SHOULDER, 2+ views EXAM: XR Right Shoulder Complete, 2 or More Views CLINICAL HISTORY: Reason for exam: Shoulder trauma, no prior imaging. TECHNIQUE: Two or more views of the right shoulder. COMPARISON: No relevant prior studies available. FINDINGS: Bones/joints: Reverse shoulder arthroplasty without evidence of hardware complication. No acute fracture. No dislocation. Partial clavicle resection. Soft tissues: Unremarkable. IMPRESSION: No acute findings in the right shoulder. Electronically signed by: Duke Castellanos M.D. 06/28/25 00:30 AM Hip/Pelvis X-Ray 06/27/25 22:51 Exam(s): XR HIP + PELVIS, 1 view EXAM: XR Left Hip With Pelvis When Performed, 2 or 3 Views CLINICAL HISTORY: Reason for exam: ttp iliac crest. TECHNIQUE: Two or three views of the left hip with pelvis when performed. COMPARISON: No relevant prior studies available. FINDINGS: Bones/joints: No acute fracture. No dislocation. Soft tissues: Unremarkable. IMPRESSION: No acute osseous findings. Electronically signed by: Duke Castellanos M.D. 06/28/25 00:37 AM Medications Administered Hydromorphone 0.5 mg IV Fentanyl 50 mcg IV Code Status & VTE Plan Code Status DNR/DNI Supervising Physician Co-Signing Physician Notes Patient seen and examined, chart reviewed, case discussed with WARNER Velasco and I agree with the assessment and plan as above. Patient with significant pain in right shoulder following a ground level fall. X-ray and CT do not show acute fracture or dislocation. Patient is very tender with slightest movement of right shoulder NV intact +S1/S2, regular, no m/r/g Lungs CTA Abd soft, NT/ND Labs and images reviewed Assessment/Plan - #severe acute right shoulder pain -Pain management with Lidoderm, Tylenol, Dilaudid -Ortho consult appreciated -PT/OT #Renal insufficiency -Hold nephrotoxic agents -Gentle IVF -Repeat chemistry in AM PG Care Time/CCT Total # of Minutes Spent Total Time Spent with Patient: Total time spent is greater than 50% in coordination of care (as documented) at patient's floor/unit and/or counseling patient: Coding Level of Care Code 28903 INT INP/OBS CARE 3/75MIN Diagnoses Right shoulder pain M25.511 Fall W19.XXXA Renal insufficiency N28.9
[2025-06-28] MEDS ORDERED: HYDROmorphone INJ 0.5 MG/0.5 ML SYR IV PRN (01:50)
[2025-06-28] MEDS ORDERED: ACETAMINOPHEN 500 MG TAB PO PRN (01:50)
[2025-06-28] MEDS ORDERED: NALOXONE HCL 0.4 MG/1 ML VIAL/CARP IV PRN (01:51)
[2025-06-28] MEDS: LIDOCAINE 5% 1 PATCH TD STA (02:15)
[2025-06-28] MEDS: LACTATED RINGER'S 1,000 ML IV STA (02:15)
--- NOTE | 2025-06-28 02:39 | CT Scan Report ---
EXAM: CT shoulder RT wo con CLINICAL HISTORY: pain/injury TECHNIQUE: Contiguous axial CT images of the right shoulder were obtained without intravenous contrast. Coronal and sagittal reconstructions were also performed and were indicated to increase the sensitivity for detecting clinically relevant pathology. The CT scan was performed according to ALARA (as low as reasonably achievable). COMPARISON: None FINDINGS: Total right shoulder arthroplasty status. No loosening of the prosthesis. The mid segment of the right clavicle is not visualized; previous operative changes are likely. There is no acute fracture or dislocation. There is no destructive osseous lesion. The visualized muscles and tendons appear grossly unremarkable. There is no cortical destruction to suggest osteomyelitis. No abscess formation is seen. There is no significant joint effusion. There are no soft tissue masses. The subcutaneous adipose space is normal. IMPRESSION: Total right shoulder arthroplasty status. No loosening of the prosthesis. The mid segment of the right clavicle is not visualized; previous operative changes are likely. No acute trauma-related abnormality is seen. Electronically signed by Ranjan Doshi 06-28-2025 02:39 AM
[2025-06-28] MEDS ORDERED: MAGNESIUM HYDROXIDE SUSP 30 ML UDC PO PRN (03:29)
[2025-06-28] MEDS ORDERED: RIZATRIPTAN BENZOATE 10 MG TAB PO PRN (03:29)
[2025-06-28] MEDS ORDERED: MELATONIN 3 MG TAB PO PRN (03:29)
[2025-06-28] MEDS: HYDROmorphone INJ 0.5 MG/0.5 ML SYR IV PRN (03:35)
[2025-06-28 03:36] LABS: Appearance Urine Clear (Clear); Glucose Urine UA Negative (Negative)
[2025-06-28] MEDS ORDERED: LORazepam 0.5 MG TAB PO PRN (06:42)
[2025-06-28 07:59] LABS: Anion Gap 7.0 (3-11); Blood Urea Nitrogen 12.0 mg/dl (6-23); Calcium 9.1 mg/dl (8.6-10.3); Carbon Dioxide 27.0 mmol/L (21-32); Chloride 107.0 mmol/L (98-107); Creatinine Clr Calc Pharmacy 40.6 ml/min; Glucose 110.0 mg/dl (70-99(Fasting)); Potassium 4.1 mmol/L (3.5-5.1); Sodium 141.0 mmol/L (136-145)
--- NOTE | 2025-06-28 08:18 | Orthopedic Consultation ---
Date of Consultation June 28, 2025 Assessment & Plan (1) Right shoulder pain: (2) History of shoulder replacement: (3) Trigeminal neuralgia: (4) Acid reflux: (5) Diabetes: (6) High blood pressure: Plan this is a 80-year-old female who presented to the hospital after a fall onto her right shoulder. Patient was admitted for pain control and orthopedic evaluation. My evaluation this morning, the patient has significant pain about her right shoulder. She has a history of reverse total shoulder arthroplasty done by a surgeon in [place] about 11 years ago. She notes no real issues since the surgery. On my evaluation of the patient's radiographs and CT scan, I do not appreciate any acute osseous abnormalities. The patient's shoulder is reduced and the implants appear stable. No plans for acute orthopedic intervention. I do think that it is knox for the patient to follow-up with her previous surgeon for this. In the interim, the patient may benefit from the use of a sling for immobilization while she is up and moving, however I do believe that gentle range of motion including pendulums and Codman's triangles would be reasonable to prevent any shoulder stiffness. Should the patient not wish to see her primary orthopedic surgeon, she could follow-up with our shoulder specialist, Dr. Morocho. History of Present Illness Reason for Consultation: R shoulder pain Attending Physician: Arielle Torres DO History of Present Illness 80-year-old female PMHx T2DM, migraines, HLD, HTN, anxiety with depression, vitamin B12 deficiency, and vestibular nystagmus presenting after fall at home, landing on the right shoulder. Did not hit head, but is on baby aspirin daily. Pt reports that she fell forward while at home, landing directly on her R shoulder. Pt denies any symptoms prior to the fall including chest pain, dizziness, syncope, or palpitations. She reports falls in the past, all mechanical in nature. 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 She admits to significant, sharp pain at time of my evaluation. When lifting her arm, she has a significant increase in her pain. She denies any numbness/tingling throughout, specifically in the RUE. She is able to move her RUE from the elbow to fingers without pain/discomfort. She is tearful, expressing much pain that has not been alleviated with pain medications. She denies additional symptoms to include chest pain, palpitations, SOB, abdominal pain, N/V/D/C, numbness/tingling, URI symptoms, F/C, LUTS, weakness, syncope, or LOC. This morning, I evaluated the patient in her hospital room. She notes that her pain is not significantly improved from prior. She denies any pain in her elbow, wrist, hand. She notes pain only in her right shoulder. Allergies Allergy/AdvReac Type Severity Reaction Status Date / Time cephalexin [From Keflex] Allergy Unverified 05/30/25 10:23 morphine Allergy Unverified 05/30/25 10:23 Sulfa (Sulfonamide Allergy Unverified 05/30/25 10:23 Antibiotics) Home Medications Medication Instructions Recorded Confirmed Type amlodipine 5 mg tablet 5 mg PO DAILY 05/30/25 06/28/25 History vdchizo-xoimiuvgcjhqj-acexajin 250 1 tab PO Q6H PRN Migraine Headache 05/30/25 06/28/25 History mg-250 mg-65 mg tablet (Excedrin Extra Strength) atorvastatin 10 mg tablet 10 mg PO DAILY 05/30/25 06/28/25 History cholecalciferol (vitamin D3) 125 125 mcg PO DAILY 05/30/25 06/28/25 History mcg (5,000 unit) capsule cyanocobalamin (vitamin B-12) 500 500 mcg PO DAILY 05/30/25 06/28/25 History mcg tablet escitalopram oxalate 10 mg tablet 10 mg PO DAILY 05/30/25 06/28/25 History ferrous sulfate 325 mg (65 mg 325 mg PO USEASDIRECTD 05/30/25 06/28/25 History iron) tablet gabapentin 600 mg tablet 600 mg PO BID 05/30/25 06/28/25 History ketorolac 0.5 % eye drops 1 drp ophthalmic (eye) QID 05/30/25 06/28/25 History lorazepam 0.5 mg tablet 0.5 mg PO HS 05/30/25 06/28/25 History oxcarbazepine 150 mg tablet 150 mg PO BID 05/30/25 06/28/25 History pantoprazole 40 mg tablet,delayed 40 mg PO DAILY 05/30/25 06/28/25 History release pioglitazone 15 mg tablet 15 mg PO DAILY 05/30/25 06/28/25 History rizatriptan 10 mg tablet See Rx Instructions PO .COMPLEX 05/30/25 06/28/25 History telmisartan 80 mg tablet 80 mg PO DAILY 05/30/25 06/28/25 History trazodone 100 mg tablet 150 mg PO HS 05/30/25 06/28/25 History verapamil 180 mg 24 hr 180 mg PO BID 05/30/25 06/28/25 History capsule,extended release Patient History Medical History Trigeminal neuralgia Acid reflux Diabetes High blood pressure Surgical History H/O carpal tunnel repair History of bladder surgery H/O: hysterectomy Family History Other Cancer Heart disease Hypertension Stroke Social History Smoking Status: Former smoker Tobacco Type: Cigarettes Second Hand Exposure: No; Do You Dip or Chew Tobacco: No; Tobacco Cessation Education Requested by Patient: No Hx Alcohol Use: No Hx Substance Use: No Preferred Language: [place] Islander Communication Ability: Effective 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 She has pain with any attempted right shoulder range of motion. She has intact sensation C5-T1. She has intact AIN, PIN, radial, median, ulnar motor nerves. No open wounds appreciated. No issues with the incision noted. No significant ecchymosis Results & Data Vital Signs (Past 12 Hours) Vital Signs Temp Pulse Pulse Resp BP BP BP 06/28/25 07:40 36.8 C 81 16 170/90 H 06/28/25 04:41 36.6 C 72 18 128/76 06/28/25 04:39 125/76 06/28/25 03:17 36.6 C 72 18 177/77 H 06/28/25 02:22 06/28/25 02:00 80 17 153/83 H 06/28/25 02:00 06/28/25 00:47 78 16 163/100 H 06/27/25 22:55 85 16 170/89 H 06/27/25 21:45 36.5 C 99 H 18 188/106 H Pulse Ox O2 Del Method 06/28/25 07:40 93 Room Air 06/28/25 04:41 94 Room Air 06/28/25 04:39 06/28/25 03:17 94 Room Air 06/28/25 02:22 87 L Room Air, Nasal Cannula 06/28/25 02:00 94 Room Air 06/28/25 02:00 94 Room Air 06/28/25 00:47 92 Room Air 06/27/25 22:55 93 Room Air 06/27/25 21:45 91 Room Air Diagnostic Findings x-rays and CT scan of the right shoulder personally interpreted and reviewed. These demonstrate prior reverse right total shoulder arthroplasty without evidence of acute complication or fracture.
[2025-06-28 08:25] LABS: Hemoglobin A1C 6.5 % (4.5-5.6)
[2025-06-28] MEDS: GABAPENTIN 600 MG TAB PO SCH (08:50)
[2025-06-28] MEDS: VERAPAMIL HCL 180 MG TABCR PO SCH (08:50)
[2025-06-28] MEDS: FERROUS SULFATE 325 MG TAB PO SCH (08:50)
[2025-06-28] MEDS: KETOROLAC 0.5% OP SOLN 5 ML BTL OP SCH (08:50)
[2025-06-28] MEDS: ESCITALOPRAM OXALATE 10 MG TAB PO SCH (08:50)
[2025-06-28] MEDS: ATORVASTATIN 10 MG TAB PO SCH (08:50)
[2025-06-28] MEDS: LOSARTAN POTASSIUM 50 MG TAB PO SCH (08:50)
[2025-06-28] MEDS: ACETAMINOPHEN 500 MG TAB PO SCH (09:21)
[2025-06-28] MEDS: ONDANSETRON INJ 2 MG/ML 2 ML VIAL IV PRN (09:25)
--- NOTE | 2025-06-28 12:54 | XRay Report ---
XR chest 2V PA/lateral CLINICAL HISTORY: hypoxia COMPARISON STUDY: CT of the right shoulder yesterday FINDINGS: There is moderate cardiomegaly without pulmonary vascular congestion. Mild prominence of th e right upper mediastinum is seen to represent vasculature on the CT scan yesterday. There is mild el evation of the right hemidiaphragm. Lungs are mildly hyperexpanded. No consolidation or pleural effus ion seen. No pneumothorax. Stable right shoulder prosthesis. IMPRESSION: No pneumonia seen. ACT 112: Negative or not required by law. Electronically signed by: Kemar Ching M.D. 06/28/2025 12:53 PM
[2025-06-28] MEDS: REMOVE LIDODERM PATCH ONE (13:31)
--- NOTE | 2025-06-28 15:27 | Hospitalist Progress Note ---
Date of Service June 28, 2025 Assessment & Plan (1) Right shoulder pain: (2) Fall: (3) Renal insufficiency: Plan 80-year-old female with R RENE and hx R clavicular fracture presented after fall at home with severe right shoulder pain. She had landed on R shoulder (shoulder was not extended). Xrays and CT of right shoulder were negative for fracture. Admitted for pain control, orthopedic consultation # Right shoulder pain. CT no fracture. Consulted orthopedics. reviewed recs in note. recommended pain control, gentle ROM exercises, follow up with her shoulder surgeon or Dr. Finch Ordered PT and occupational therapy, range of motion exercises (inc pendulum swing), sling for comfort for right upper extremity. Suspect soft tissue injury Due to severe pain, patient will remain hospitalized through tomorrow. Treatment plan: Adjust pain medication regimen to include scheduled APAP, cont lidoderm, add muscle relaxers - cyclobenzaprine 5 mg po tid. Added oxycodone po for moderate pain. Still requiring IV hydromorphone for pain. Consider trial of lorazepam or diazepam for spasm management. # Hypoxia. Suspected atelectasis based on exam and symptoms. Introduce incentive spirometer. Obtain chest x-ray. Personally reviewed CXR film and it is clear excepting righ t medial apical opacity - per radiologist this correlates with some vasculature based on CT Increase mobility. # DVT Prophylaxis: # Mild renal insufficiency resolved after IVF. Cr 1.4--> 1 # H/o DMT2; At home regimen includes pioglitazone, and gabapentin + oxcarbazepine for neuropathy. - A1c 6.5 - Hold pioglitazone - SSI deferred, add on as appropriate - BSG daily #HTN- Amlodipine, telmisartan, verapamil - continue #Migraines- Excedrin prn, rizatriptan prn - continue rizatriptan, hold Excedrin (continue to hold while on acetaminophen for pain management) #HLD- Atorvastatin - continue #Psych- Escitalopram, trazodone, lorazepam - continue #GERD- Pantoprazole - continue VTE Prophylaxis: enoxaparin Admission and Anticipated Discharge Date Admission Date: June 28, 2025 Subjective Patient reports severe pain in right shoulder and upper arm. Flexion and extension of elbow cause pain in upper medial humerus. Flexion, extension, or abduction of shoulder, including passive range of motion, triggers severe pain. Dilaudid provides partial relief but does not fully control pain. Pain disrupts sleep and causes discomfort in bed. No history of lung or heart problems, low oxygen levels, shortness of breath, cough, or chest pain. Suspects undiagnosed sleep apnea, does not use CPAP. Physical Exam Physical Exam: General Appearance: Pleasant woman, awake and alert, sitting in bed. Vital signs: Reviewed past 24h vital signs in EMR, unremarkable. HEENT: Within normal limits. Respiratory: Clear lungs anteriorly. Bilateral posterior crackles. Shallow breathing. Nonlabored work of breathing. Cardiovascular: Regular heart rate. No murmurs, rubs, or gallops. Gastrointestinal: Soft, nontender, nondistended. Back, Musculoskeletal: Tender humerus medially. Abduction or extension causes severe pain. Tender biceps insertion. No tenderness or pain on passive range of motion of elbow. No deformity of forearm or hand. Extremities: Lower extremities warm, well perfused. No edema. Skin: Warm and dry, no rash. Neurological: Alert and oriented x4. Symmetric face. Normal speech. Moves all extremities spontaneously. Psychiatric: Normal. Results & Data Results & Data Vital Signs (Past 12 Hours) Vital Signs Temp Pulse Resp BP Pulse Ox O2 Del Method O2 Flow Rate 06/28/25 15:03 36.4 C L 61 16 126/77 97 Room Air 06/28/25 11:20 Nasal Cannula 2 06/28/25 07:40 36.8 C 81 16 170/90 H 93 Room Air 06/28/25 04:41 36.6 C 72 18 128/76 94 Room Air 06/28/25 04:39 125/76 Laboratory Results Cr improved to 1 PG Care Time/CCT Total # of Minutes Spent Total Time Spent with Patient: Total time spent is greater than 50% in coordination of care (as documented) at patient's floor/unit and/or counseling patient: Coding Level of Care Code 41514 SUB INP/OBS CARE 2/35MIN Diagnoses Right shoulder pain M25.511 Fall W19.XXXA Renal insufficiency N28.9
[2025-06-28] MEDS: ENOXAPARIN INJ 40 MG/0.4 ML SYR SQ SCH (17:44)
[2025-06-28] MEDS: CYCLOBENZAPRINE HCL 5 MG TAB PO SCH (20:26)
[2025-06-28] MEDS: LORazepam 0.5 MG TAB PO SCH (20:26)
--- NOTE | 2025-06-29 10:33 | XRay Report ---
RIGHT HUMERUS 2 VIEWS CLINICAL HISTORY: Right arm pain. FINDINGS: AP and lateral views of the right humerus are correlated with right shoulder x-rays dated 1 . The skeletal structures are osteopenic. A right shoulder arthroplasty is in near anatomic alignment. No periprosthetic lucency is identified. There is no radiographic evidence of humeral frac ture. Elbow joint is grossly maintained. Portions of the clavicle are surgically absent. The overlyin g soft tissues are within normal limits. IMPRESSION: 1. There is no radiographic evidence of right humeral fracture. 2. A right shoulder arthroplasty is in near anatomic alignment. Electronically signed by: Lg Flores M.D. 06/29/2025 10:31 AM
--- NOTE | 2025-06-29 10:34 | XRay Report ---
RIGHT ELBOW 3 VIEWS CLINICAL HISTORY: Right arm pain. FINDINGS: 3 views of the right elbow are obtained. No prior studies are available for comparison at t he time of dictation. The skeletal structures are osteopenic. No fracture is seen. The joint spaces a re maintained. No joint effusion is identified. The overlying soft tissues are within normal limits. IMPRESSION: No acute bony abnormality is identified. Electronically signed by: Lg Flores M.D. 06/29/2025 10:32 AM
[2025-06-29] MEDS: FUROSEMIDE 40 MG/4 ML VIAL IV ONE (14:29)
[2025-06-29] MEDS: POTASSIUM CHLORIDE CRTAB 20 MEQ TABCR PO ONE (14:29)
--- NOTE | 2025-06-29 17:29 | Hospitalist Progress Note ---
Date of Service June 29, 2025 Assessment & Plan (1) Right shoulder pain: (2) Fall: (3) Renal insufficiency: Plan 80-year-old female with R RENE and hx R clavicular fracture presented after fall at home with severe right shoulder pain. She had landed on R shoulder (shoulder was not extended). Xrays and CT of right shoulder were negative for fracture. Admitted for pain control, orthopedic consultation # Right shoulder pain. CT no fracture. Consulted orthopedics. reviewed recs in note. recommended pain control, gentle ROM exercises, follow up with her shoulder surgeon or Dr. Finch Obtained xrays humerus and elbow 06/29 to exclude more distal fracture - none present Ordered PT and occupational therapy, range of motion exercises (inc pendulum swing), sling for comfort for right upper extremity. Suspect soft tissue injury Due to severe pain, hypoxia, need for rehab placement patient will remain hospitalized. Treatment plan: cont scheduled APAP, cont lidoderm, oxycodone po for moderate pain. she was oversedated on cyclobenzaprine 5 tid - stopped # Hypoxia. Suspected atelectasis based on exam and symptoms. CXR clear excepting right medial apical opacity - per radiologist this correlates with some vasculature based on CT Increase mobility. Continue IS. Trial of lasix 40 IV x 1 with potassium in case of pulmonary edema, assess response # Mild renal insufficiency resolved after IVF. Cr 1.4--> 1 # H/o DMT2; At home regimen includes pioglitazone, and gabapentin + oxcarbazepine for neuropathy. - A1c 6.5 - Hold pioglitazone - SSI deferred, add on as appropriate - BSG daily #HTN- Amlodipine, telmisartan, verapamil - continue #Migraines- Excedrin prn, rizatriptan prn - continue rizatriptan, hold Excedrin (continue to hold while on acetaminophen for pain management) #HLD- Atorvastatin - continue #Psych- Escitalopram, trazodone, lorazepam - continue #GERD- Pantoprazole - continue VTE Prophylaxis: enoxaparin PT/OT rec rehab Admission and Anticipated Discharge Date Admission Date: June 28, 2025 Subjective She reports severe pain in her right shoulder, localized to the right acromion, limiting her range of motion. No pain extends below the elbow. Dye And [employer] Coordinator strength in the right hand remains strong, with no tingling or numbness. No significant neck pain beyond her usual chronic pain. activities are minimal due to pain intensity, and she cannot bear weight with her walker. Physical therapist recommended gait training with single hand support and rehabilitation stay. She remains hypoxic, with oxygen saturation levels in the low 90s on 2 liters of oxygen. Nursing staff reports she has been sleeping most of the morning. During examination, she was asleep but responded to voice and gentle tactile stimu lation. Upon awakening, she did not appear groggy or confused. Physical Exam Physical Exam: General Appearance: Patient is sleeping but arouses to voice and gentle tactile stimulation. Once awake, she is not groggy or confused. Vital signs: Oxygen saturation levels in the low 90s on 2 liters of oxygen. HEENT: Within normal limits. Respiratory: Lungs clear to auscultation anteriorly. Bibasilar crackles present. Breathing nonlabored. Cardiovascular: Heart regular. No murmurs, rubs, or gallops. Back, Musculoskeletal: Right upper extremity in sling. Tolerates less than 5 degrees range of motion, causing severe pain including passive range of motion. D[employer] And [employer] Coordinator strength 5/5. Extremities: Right hand and arm warm and well perfused. No lower extremity edema. Lower extremities warm and well perfused. Skin: Warm and dry, no rash. Neurological: Normal. Psychiatric: Normal. Results & Data Results & Data Vital Signs (Past 12 Hours) Vital Signs Temp Pulse Resp BP Pulse Ox O2 Del Method O2 Flow Rate 06/29/25 14:43 36.9 C 60 16 121/71 93 Nasal Cannula 2 06/29/25 13:02 92 Nasal Cannula 2 06/29/25 08:00 Nasal Cannula 2 06/29/25 07:27 36.8 C 74 16 134/80 94 Nasal Cannula 2 Diagnostic Findings Elbow X-Ray 06/29/25 10:04 RIGHT ELBOW 3 VIEWS CLINICAL HISTORY: Right arm pain. FINDINGS: 3 views of the right elbow are obtained. No prior studies are available for comparison at the time of dictation. The skeletal structures are osteopenic. No fracture is seen. The joint spaces are maintained. No joint effusion is identified. The overlying soft tissues are within normal limits. IMPRESSION: No acute bony abnormality is identified. Electronically signed by: Lg Flores M.D. 06/29/2025 10:32 AM Humerus X-Ray 06/29/25 10:04 RIGHT HUMERUS 2 VIEWS CLINICAL HISTORY: Right arm pain. FINDINGS: AP and lateral views of the right humerus are correlated with right shoulder x-rays dated 06/27/2025. The skeletal structures are osteopenic. A right shoulder arthroplasty is in near anatomic alignment. No periprosthetic lucency is identified. There is no radiographic evidence of humeral fracture. Elbow joint is grossly maintained. Portions of the clavicle are surgically absent. The overlying soft tissues are within normal limits. IMPRESSION: 1. There is no radiographic evidence of right humeral fracture. 2. A right shoulder arthroplasty is in near anatomic alignment. Electronically signed by: Lg Flores M.D. 06/29/2025 10:31 AM PG Care Time/CCT Total # of Minutes Spent Total Time Spent with Patient: Total time spent is greater than 50% in coordination of care (as documented) at patient's floor/unit and/or counseling patient: Coding Level of Care Code 48761 SUB INP/OBS CARE 2/35MIN Diagnoses Right shoulder pain M25.511 Fall W19.XXXA Renal insufficiency N28.9
--- NOTE | 2025-06-30 09:01 | XRay Report ---
SINGLE VIEW CHEST CLINICAL HISTORY: Hypoxia FINDINGS: 2 AP, portable, upright chest radiographs are compared to study dated 06/28/2025. The heart is enlarged noting atherosclerotic calcification of the thoracic aorta. The pulmonary vasculature is noncongested. Chronic interstitial thickening is similar to previous. There is bibasilar scarring/at electasis. No airspace consolidation or large pleural effusion is identified. No pneumothorax is seen . The skeletal structures are osteopenic. Portions of the right clavicle are surgically absent. A rig ht shoulder arthroplasty is in place. Cholecystectomy clips are noted in the right upper quadrant. IMPRESSION: Cardiomegaly with no acute cardiopulmonary abnormality identified. ACT 112: Negative or not required by law. Electronically signed by: Lg Flores M.D. 06/30/2025 9:00 AM
--- NOTE | 2025-06-30 16:41 | Hospitalist Progress Note ---
Date of Service June 30, 2025 Assessment & Plan (1) Right shoulder pain: (2) Fall: (3) Renal insufficiency: Plan 80-year-old female with R RENE and hx R clavicular fracture presented after fall at home with severe right shoulder pain. She had landed on R shoulder (shoulder was not extended). Xrays and CT of right shoulder were negative for fracture. Admitted for pain control, orthopedic consultation # Right shoulder pain. CT no fracture. Consulted orthopedics. reviewed recs in note. recommended pain control, gentle ROM exercises, follow up with her shoulder surgeon or Dr. Finch Obtained xrays humerus and elbow 06/29 to exclude more distal fracture - none present Ordered PT and occupational therapy, range of motion exercises (inc pendulum swing), sling for comfort for right upper extremity. Suspect soft tissue injury Due to severe pain, hypoxia, need for rehab placement patient will remain hospitalized. Treatment plan: cont scheduled APAP, cont lidoderm, oxycodone po for moderate pain. she was oversedated on cyclobenzaprine 5 tid - stopped. Await reassessm ent with PT tomorrow if necessary make referral to short-term rehab suspect her hypoxia will resolve with increased mobility, if she is able to go home with home health will need to arrange home oxygen # Hypoxia. Suspected atelectasis based on exam and symptoms. CXR clear excepting right medial apical opacity - per radiologist this correlates with some vasculature based on CT Increase mobility. Continue IS. Trial of lasix 40 IV x 1 06/29 - she did have a good deal of urine output but oxygen requirement remains # Mild renal insufficiency resolved after IVF. Cr 1.4--> 1 # H/o DMT2; At home regimen includes pioglitazone, and gabapentin + oxcarbazepine for neuropathy. - A1c 6.5 - Hold pioglitazone - SSI deferred, add on as appropriate - BSG daily #HTN- Amlodipine, telmisartan, verapamil - continue #Migraines- Excedrin prn, rizatriptan prn - continue rizatriptan, hold Excedrin (continue to hold while on acetaminophen for pain management) #HLD- Atorvastatin - continue #Psych- Escitalopram, trazodone, lorazepam - continue #GERD- Pantoprazole - continue VTE Prophylaxis: enoxaparin PT/OT rec rehab Admission and Anticipated Discharge Date Admission Date: June 28, 2025 Shadi Adrian continues to have severe right humerus/shoulder pain with any movement, however, this has improved a lot since admission. She has been able to get up out of bed with the assistance of the staff and walk to the bathroom. She still tolerates very little range of motion no more than 5 degrees at the shoulder she feels like her breathing is no different than prior to the Lasix she did urinate a lot, her hypoxia is unchanged she continues to require 2 L nasal cannula she does not have a cough or chest pain, she only had mild leg edema to start with and now it is minimal Physical Exam Physical Exam: General Appearance: awake alert and sitting up in bed Vital signs: Oxygen saturation 94% on 2 liters of oxygen. HEENT: Within normal limits. Respiratory: Lungs clear to auscultation anteriorly. normal work of breathing left basilar crackles persists and only slight right basilar crackles generally improved Cardiovascular: Heart regular. No murmurs, rubs, or gallops. Back, Musculoskeletal: Right upper extremity in sling. Tolerates less than 5 degrees range of motion, causing severe pain including passive range of motion. Compressor Mechanic strength 5/5. unchanged Extremities: Right hand and arm warm and well perfused. trace lower extremity edema. Lower extremities warm and well perfused. Skin: Warm and dry, no rash. Neurological: Normal. Psychiatric: Normal. Results & Data Results & Data Vital Signs (Past 12 Hours) Vital Signs Temp Pulse Resp BP Pulse Ox O2 Del Method O2 Flow Rate 06/30/25 14:42 36.8 C 57 L 18 113/70 94 Nasal Cannula 2 06/30/25 07:41 36.7 C 67 18 119/74 93 Nasal Cannula 2 06/30/25 07:20 Nasal Cannula 2 PG Care Time/CCT Total # of Minutes Spent Total Time Spent with Patient: Total time spent is greater than 50% in coordination of care (as documented) at patient's floor/unit and/or counseling patient: Coding Level of Care Code 31841 SUB INP/OBS CARE 2/35MIN Diagnoses Right shoulder pain M25.511 Fall W19.XXXA Renal insufficiency N28.9
[2025-07-01] MEDS: POLYETHYLENE (MIRALAX) 17 GM PACK PO PRN (07:46)
[2025-07-01 08:20] LABS: Anion Gap 9.0 (3-11); Blood Urea Nitrogen 17.0 mg/dl (6-23); Calcium 9.3 mg/dl (8.6-10.3); Carbon Dioxide 30.0 mmol/L (21-32); Chloride 102.0 mmol/L (98-107); Creatinine Clr Calc Pharmacy 39.1 ml/min; Glucose 88.0 mg/dl (70-99(Fasting)); Potassium 4.3 mmol/L (3.5-5.1); Sodium 141.0 mmol/L (136-145)
[2025-07-01] MEDS: POTASSIUM CHLORIDE CRTAB 20 MEQ TABCR PO ONE (11:11)
[2025-07-01] MEDS: FUROSEMIDE 40 MG/4 ML VIAL IV ONE (11:11)
[2025-07-01] MEDS: INFLUENZA VACC TS2025-26(65y+)/PF (IIV3) 0.5mL Syr IM ONE (13:36)
--- NOTE | 2025-07-01 21:01 | Hospitalist Progress Note ---
Date of Service July 01, 2025 Assessment & Plan (1) Right shoulder pain: (2) Fall: (3) Renal insufficiency: Plan 80-year-old female with R RENE and hx R clavicular fracture presented after fall at home with severe right shoulder pain. She had landed on R shoulder (shoulder was not extended). Xrays and CT of right shoulder were negative for fracture. Admitted for pain control, orthopedic consultation # Right shoulder pain. CT no fracture. Consulted orthopedics. reviewed recs in note. recommended pain control, gentle ROM exercises, follow up with her shoulder surgeon or Dr. Finch Obtained xrays humerus and elbow 06/29 to exclude more distal fracture - none present Ordered PT and occupational therapy, range of motion exercises (inc pendulum swing), sling for comfort for right upper extremity. Suspect soft tissue injury Treatment plan: cont scheduled APAP, cont lidoderm, oxycodone po for moderate pain. pain and range of motion significantly improved today. According to PT note today they plan to see her tomorrow to continue with gait training with a cane anticipate home with home health as soon as tomorrow # Hypoxia. Suspected atelectasis based on exam and symptoms. differential diagnosis is pulmonary edema CXR clear excepting right medial apical opacity - per radiologist this correlates with some vasculature based on CT Increase mobility. Continue IS. Trial of lasix 40 IV x 1 06/29, repeated dose today with 40 mEq of oral potassium follow-up BMP in a.m. two-step test tomorrow if still hypoxic, may need home O2 # Mild renal insufficiency resolved after IVF. Cr 1.4--> 1 creatinine remained stable at 1 # H/o DMT2; At home regimen includes pioglitazone, and gabapentin + oxcarbazepine for neuropathy. - A1c 6.5 - Hold pioglitazone - SSI deferred, add on as appropriate - BSG daily Echo #HTN- Amlodipine, telmisartan, verapamil - continue #Migraines- Excedrin prn, rizatriptan prn - continue rizatriptan, hold Excedrin (continue to hold while on acetaminophen for pain management) #HLD- Atorvastatin - continue #Psych- Escitalopram, trazodone, lorazepam - continue #GERD- Pantoprazole - continue VTE Prophylaxis: enoxaparin Admission and Anticipated Discharge Date Admission Date: June 28, 2025 Subjective Awakened from a nap, removed arm sling, noted significant improvement in range of motion and pain levels compared to the previous day. No shortness of breath or cough. Reported increased urination following Lasix administration. Physical Exam Physical Exam: General Appearance: Normal. Vital signs: Reviewed past 24h vital signs in EMR, unremarkable. HEENT: Within normal limits. Respiratory: Lungs clear to auscultation anteriorly, bilateral crackles long-term out. Cardiovascular: Heart regular rate and rhythm. Back, Musculoskeletal: Right arm: significantly improved pain and range of motio n, able to range arm at least 45 degrees and lift overhead almost fully, some strength with abduction and extension, essentially full range of motion at elbow without pain, no wrist or shoulder deformity, no ecchymosis, warm and well perfused. Extremities: Mild pitting edema in both lower extremities, warm and well perfused without cyanosis. Skin: Skin warm, dry, generalized rashes. Neurological: Normal. Psychiatric: Normal. Results & Data Results & Data Vital Signs (Past 12 Hours) Vital Signs Temp Pulse Resp BP Pulse Ox O2 Del Method 07/01/25 20:13 61 122/81 07/01/25 15:54 36.6 C 67 18 103/66 90 Room Air Laboratory Results sodium 141 potassium 4.3 BUN 17 creatinine 1 white blood count 12 hemoglobin 11 PG Care Time/CCT Total # of Minutes Spent Total Time Spent with Patient: Total time spent is greater than 50% in coordination of care (as documented) at patient's floor/unit and/or counseling patient: Coding Level of Care Code 54581 SUB INP/OBS CARE 2/35MIN Diagnoses Right shoulder pain M25.511 Fall W19.XXXA Renal insufficiency N28.9
[2025-07-02 07:16] LABS: Anion Gap 4.0 (3-11); Blood Urea Nitrogen 21.0 mg/dl (6-23); Calcium 8.9 mg/dl (8.6-10.3); Carbon Dioxide 33.0 mmol/L (21-32); Chloride 103.0 mmol/L (98-107); Creatinine Clr Calc Pharmacy 33.5 ml/min; Glucose 88.0 mg/dl (70-99(Fasting)); Potassium 4.2 mmol/L (3.5-5.1); Sodium 140.0 mmol/L (136-145)
[2025-07-02 07:59] VITALS: TEMP 97.7; O2SAT 92
--- NOTE | 2025-07-02 12:02 | Discharge Summary ---
Discharge Summary Date of Service July 02, 2025 Principal Dx & Hospital Course #1 = Principal Diagnosis (1) Right shoulder pain: (2) Fall: (3) Renal insufficiency: Plan 80-year-old female with remote R RENE and hx R clavicular fracture presented after fall at home with severe right shoulder pain. She had landed on R shoulder (shoulder was not extended). Xrays and CT of right shoulder were negative for fracture. Admitted for pain control, orthopedic consultation. Pain was severe for several days, severely affecting her mobility. Follow up xrays of distal part of humerus and elbow were also negative for fracture. Th ere was no hematoma or deformity on exam. Suspect she had a significant soft tissue injury potentially a ligamentous tear / rotator cuff injury. By time of discharge her pain and range of motion significantly improved. She may have some weakness with abduction and internal rotation but exam is difficult because of pain. She will follow up with her outpatient orthopedics practice, [facility] in [place]. # Right shoulder pain. CT no fracture. Consulted orthopedics. recommended pain control, gentle ROM exercises, follow up with her shoulder surgeon Obtained xrays humerus and elbow 06/29 to exclude more distal fracture - none present Ordered PT and occupational therapy, range of motion exercises (inc pendulum swing), sling for comfort for right upper extremity. Suspect soft tissue injury Treatment plan: cont scheduled APAP, cont lidoderm, oxycodone po for moderate pain. pain and range of motion significantly improved. PT cleared for home with home health. # Acute on chronic or chronic hypoxic respiratory failure Remained hypoxic in hospital with low O2 requirement. Asymptomatic - no cough, chest pain or dyspnea. On further history it sounds like her oxygen is c hronically low when checked at her doctor's office that improves with deep breaths, though she has never been on home O2. Probably has never had her exertional O2 sats checked in the past. No history of lung disease. Considered heart failure and I diuresed her to completely dry based on labs, bp and exam but hypoxia did not improve at all, so pulmonary edema was ruled out. She had no chest pain or dyspnea to suggest PE. Exam and imaging was consistent with atelectasis, which was exacerbated by acute pain and immobility. - treated with mobility, IS etc - probable chronic hypoxic respiratory failure related to obesity-related hypoventilation / OHS, acute component of increased atelectasis - probable undiagnosed LUAN - (snoring, hypertension, obesity/body habitus BMI 33, several sedating medications) - recommend outpatient referral to sleep medicine, outpatient pulmonary to exclude lung disease - home oxygen was set up - needs 2L with exertion and at night. Resting O2 sat when awake stays in low 90s. - follow up in primary care # Mild renal insufficiency resolved after IVF. Cr 1.4--> 1 creatinine remained stable at 1 # H/o DMT2; At home regimen includes pioglitazone, and gabapentin + oxcarbazepine for neuropathy. - A1c 6.5 - continue usual meds #HTN- Amlodipine, telmisartan, verapamil - continue #Migraines- Excedrin prn, rizatriptan prn #HLD- Atorvastatin - continue #Psych- Escitalopram, trazodone, lorazepam - continue #GERD- Pantoprazole - continue Notes For Next Care Provider Referral placed to [facility] in [place] for follow up of shoulder injury Home health PT and OT Home oxygen Recommend outpatient sleep medicine and pulmonamry referral Medication Changes From Visit Scheduled acetaminophen and occasional low dose oxycodone for acute shoulder pain Admission HPI Per Admitting Provider 80-year-old female PMHx T2DM, migraines, HLD, HTN, anxiety with depression, vitamin B12 deficiency, and vestibular nystagmus presenting after fall at home, landing on the right shoulder. Did not hit head, but is on baby aspirin daily. Pt reports that she fell forward while at home, landing directly on her R shoulder. She did not have time to reach out and catch herself before hitting the ground. Again, she did not hit her head or any additional areas of her body. Pt denies any symptoms prior to the fall including chest pain, dizziness, syncope, or palpitations. She reports falls in the past, all mechanical in nature. Reports that the evening [employer] was the same, saying her "long feet got in the way of walking." Admits to prior R shoulder replacement as well as cl avicular fx when she was in her 20s that was never fixed. She admits to significant, sharp pain at time of visit. Unable to get comfortable in bed. She is able to pinpoint the pain to the upper, lateral aspect of her RUE. When lifting her shoulder in an upward motion, she has a significant increase in her pain. When leaning her shoulder forward, there is not a significant change in her pain. She denies any numbness/tingling throughout, specifically in the RUE. She is able to move her RUE from the elbow to fingers without pain/discomfort. She is tearful, expressing much pain that has not been alleviated with pain medications. She denies additional symptoms to include chest pain, palpitations, SOB, abdominal pain, N/V/D/C, numbness/tingling, URI symptoms, F/C, LUTS, weakness, syncope, or LOC. Pt's son, Archie, is present in room at time of visit. ED evaluation reveals CBC without leukocytosis, stable H&H; CMP creatinine 1.42, glucose 122; shoulder XR no acute findings; hip/pelvis XR no acute findings; pending CT R shoulder.; Provided with hydromorphone 0.5 mg IV and fentanyl 50 mcg IV in ED. Please see Dr. Torres's attestation for adjustments/additions to treatment plan. Discharge Exam General Appearance: Normal. Vital signs: Reviewed past 24h vital signs in EMR, unremarkable. HEENT: Within normal limits. Respiratory: Lungs clear to auscultation anteriorly, bilateral crackles shelter out. Cardiovascular: Heart regular rate and rhythm. Back, Musculoskeletal: Right arm: massive improvement in range of motion since admission, can raise almost entirely overhead - as good as once can expect with hx ERNE, extension to at 90 degrees, has possible weakness with abduction and internal rotation but inhibited by pain difficult to assess Extremities: LE edema entirely resolved, warm and well perfused without cyanosis. Skin: Skin warm, dry, generalized rashes. Neurological: Normal. Psychiatric: Normal. Discharge Plan Discharge Items Patient Disposition: Home - Home Health Services Reason For Visit: R SHOWAI PAIN, FALL, CASS Discharge Diagnosis: Right shoulder soft tissue injury, fall, hypoxia Activity: Per Instructions section Non-emergency contact: Primary Care Provider and Surgeon Call non-emergency contact if: you have any medication questions and your symptoms worsen Follow-up/Referrals: Yuli Coronado D.O. [Primary Care Provider] - 07/08/25 2:20 pm Diet: Heart Healthy Addtl Attending Provider Instructions: You were evaluated for right shoulder injury after a fall Xrays and shoulder CT were negative for fracture Orthopedic oral and maxillofacial surgery recommended sling as needed for comfort, gentle range of motion exercises, physical therapy, pain control Home health PT and OT evaluate and treat Follow up as soon as possible with [facility] - we sent a new referral Continue scheduled acetaminophen and as needed low dose oxycodone for shoulder pain You have had persistent mild low oxygen levels. I tried IV diuretics to the point you're dried out and hypoxia didn't improve, so its not cardiac or fluid - related. You don't have any history of lung disease or signs and symptoms of a lung infection. I think that you chronically don't breathe very deeply and this is exacerbated by pain and immobility from the shoulder injury. You have risk factors for sleep apnea and I recommend outpatient sleep medicine referral (snoring, high blood pressure, obesity, age). We tested your oxygen at rest and with activity today. Follow up with primary care within 1-2 weeks for pain and low oxygen It was a pleasure taking care of you in the hospital, Vivian Solorzano MD Pending Studies at Discharge: No Stand-Alone Forms: My [facility], Smoking Cessation Medications and DC Order Prescriptions: New acetaminophen [Tylenol Extra Strength] 500 mg Tablet 1,000 mg PO Q8H Qty: 0 0RF oxycodone 5 mg Tablet 5 mg PO Q4H PRN (Reason: pain) Qty: 12 0RF Continued amlodipine 5 mg tablet 5 mg PO DAILY atorvastatin 10 mg tablet 10 mg PO DAILY cholecalciferol (vitamin D3) 125 mcg (5,000 unit) capsule 125 mcg PO DAILY cyanocobalamin (vitamin B-12) 500 mcg tablet 500 mcg PO DAILY escitalopram oxalate 10 mg tablet 10 mg PO DAILY [id number] [Excedrin Extra Strength] 250-250-65 mg tablet 1 tab PO Q6H PRN (Reason: Migraine Headache) ferrous sulfate 325 mg (65 mg iron) tablet 325 mg PO USEASDIRECTD Rx Instructions: Every other day gabapentin 600 mg tablet 600 mg PO BID ketorolac 0.5 % drops 1 drp ophthalmic (eye) QID lorazepam 0.5 mg tablet 0.5 mg PO HS oxcarbazepine 150 mg tablet 150 mg PO BID pantoprazole 40 mg tablet,delayed release (DR/EC) 40 mg PO DAILY pioglitazone 15 mg tablet 15 mg PO DAILY rizatriptan 10 mg tablet See Rx Instructions PO .COMPLEX Rx Instructions: take 1 tab at onset of headache; if no relief may repeat 1 tab after at least 2 hrs; max = 3 tabs/24 hr PO telmisartan 80 mg tablet 80 mg PO DAILY trazodone 100 mg tablet 150 mg PO HS verapamil 180 mg capsule,ext rel. pellets 24 hr 180 mg PO BID Discharge Orders: Discharge Order (Routine); Ordered 07/02/25 Ordered By: Vivian Aj/Other Patient Handouts: Managing Type 2 Diabetes Admission Data Admit Date/Time: 06/28/25 01:52 Attending Provider: Vivian Solorzano Admit Provider: Arielle Torres Primary Care Provider: Yuli Coronado. Other Providers: Cristopher Suarez; [facility] Healthcare Other Interventions: Discharge Summary Assessment (RN) Last Done: 07/02/25 14:14 Hospital Stay Data Consultations 06/28/25 00:59 ED Decision to Admit Stat 06/28/25 06:04 Consult Orthopedic Surgery Routine Diagnostic Imagining Performed 06/28/25 00:44 CT shoulder RT wo con Stat Pending Results Patient Have Any Pending Studies at Discharge: No Discharge Instructions Given to Patient (Per Discharging Provider) You were evaluated for right shoulder injury after a fall Xrays and shoulder CT were negative for fracture Orthopedic oral and maxillofacial surgery recommended sling as needed for comfort, gentle range of motion exercises, physical therapy, pain control Home health PT and OT evaluate and treat Follow up as soon as possible with [facility] - we sent a new referral Continue scheduled acetaminophen and as needed low dose oxycodone for shoulder pain You have had persistent mild low oxygen levels. I tried IV diuretics to the point you're dried out and hypoxia didn't improve, so its not cardiac or fluid - related. You don't have any history of lung disease or signs and symptoms of a lung infection. I think that you chronically don't breathe very deeply and this is exacerbated by pain and immobility from the shoulder injury. You have risk factors for sleep apnea and I recommend outpatient sleep medicine referral (snoring, high blood pressure, obesity, age). We tested your oxygen at rest and with activity today. Follow up with primary care within 1-2 weeks for pain and low oxygen It was a pleasure taking care of you in the hospital, Vivian Solorzano MD Total Time Total Time Spent Total Time Spent (In Minutes): I personally spent: 45 minutes today on clinical care activities including: reviewing chart notes and vital signs discussion with ambulatory care nurse arranging home oxygen examining and counseling the patient writing prescriptions, discharge instructions documentation Coding Level of Care Code 79775 INP/OBS DISCH >30 MIN Diagnoses Right shoulder pain M25.511 Fall W19.XXXA Renal insufficiency N28.9
[2025-07-02 14:15] VITALS: BP 153/83; PULSE 76; RESP 15
== END 2025-07-02 15:04 | disposition home health service (06) | DRG 556 ==
LOC: ED 21:43 → SUATTDRO 06-28 01:52 → 3N 06-28 01:52
DX: R09.02 Hypoxemia; H55.09 Other forms of nystagmus; E53.8 Deficiency of other specified B group vitamins; Z87.891 Personal history of nicotine dependence; W01.0XXA Fall on same level from slipping, tripping and stumbling without subsequent striking against object, initial encounter; E11.40 Type 2 diabetes mellitus with diabetic neuropathy, unspecified; E78.5 Hyperlipidemia, unspecified; K21.9 Gastro-esophageal reflux disease without esophagitis; N28.9 Disorder of kidney and ureter, unspecified; Z88.5 Allergy status to narcotic agent; I10 Essential (primary) hypertension; Z96.611 Presence of right artificial shoulder joint; G43.909 Migraine, unspecified, not intractable, without status migrainosus; Y92.009 Unspecified place in unspecified non-institutional (private) residence as the place of occurrence of the external cause; J98.11 Atelectasis; M25.511 Pain in right shoulder; Z88.1 Allergy status to other antibiotic agents; Z88.2 Allergy status to sulfonamides; F41.9 Anxiety disorder, unspecified; F32.9 Major depressive disorder, single episode, unspecified